=== PATIENT | female | born 1930 | race Caucasian/White ===

== ENCOUNTER 2017-10-14 21:17 | Emergency (ER) | payer MEDICARE, BC ==
[~2017-10-14] VITALS: Ht 157.5 cm; Wt 63.5 kg
[2017-10-14] MEDS ORDERED: ONDANSETRON HCL 4 MG/2 ML VIAL IV ONE (23:00)
[2017-10-14] MEDS ORDERED: MORPHINE SULFATE 4 MG/ML SYR/VIAL IV ONE (23:00)
[2017-10-14 23:43] VITALS: BP 170/77
[2017-10-15] MEDS ORDERED: ETOMIDATE (2MG/ML) 20ML VIAL IV ONE
[2017-10-15] MEDS ORDERED: HYDROmorphone HCL 2 MG/ML VL IV ONE (00:15)
== END 2017-10-15 01:25 | disposition home or self-care (01) ==
LOC: ER 21:17
DX: S52.502A Unspecified fracture of the lower end of left radius, initial encounter for closed fracture (principal); W22.8XXA Striking against or struck by other objects, initial encounter; Y93.89 Activity, other specified; Y99.8 Other external cause status; Y92.89 Other specified places as the place of occurrence of the external cause
CPT/HCPCS: 25605; 73100; 73110; 96374; 96375; 99152; 99285; J1170; J2405